=== PATIENT | male | born 1960 | race Caucasian/White ===

== ENCOUNTER 2020-12-27 17:50 | Emergency (ER) | payer MEDICAID ==
[~2020-12-27] VITALS: Ht 172.7 cm; Wt 68.2 kg
[2020-12-27 21:09] VITALS: BP 126/70
== END 2020-12-27 21:09 | disposition home or self-care (01) ==
LOC: EMS 17:50
DX: R20.2 Paresthesia of skin (principal)
CPT/HCPCS: 99281; Z7502